=== PATIENT | female | born 1980 | race African-American/Black ===

== ENCOUNTER 2017-09-08 13:56 | Outpatient (CLI) | payer OTHER | END 2017-09-08 13:57 | disposition home or self-care (01) | LOC: DTY/OP 13:56 | PROVIDERS: ATTEND Family Medicine | DX: R63.5 Abnormal weight gain (principal) | CPT/HCPCS: 97802 ==

== ENCOUNTER 2018-02-26 16:21 | Outpatient (CLI) | payer OTHER | END 2018-02-26 16:22 | disposition home or self-care (01) | LOC: CTENTCT 16:21 | PROVIDERS: ATTEND Specialist | DX: J32.9 Chronic sinusitis, unspecified (principal) | CPT/HCPCS: 70486 ==

== ENCOUNTER 2021-10-01 16:54 | Inpatient (IN) | payer BC ==
[~2021-10-01 16:54] MED LIST: Iopamidol-370 76% 500 ML 1 ML ONE
[2021-10-01] MEDS ORDERED: Morphine 4 MG/ML VIAL ONE ×2 (17:37→22:01)
[2021-10-01] MEDS ORDERED: Cefepime 2 GM VIAL ONE (17:37)
[2021-10-01 17:44] LABS: BHCG - Serum Negative (NEGATIVE); Pregs Control Background? CLEAR/WHITE (CLR/WHITE); Pregs Control Bar Appear? YES (CONTROL BAR)
[2021-10-01] MEDS ORDERED: Acetaminophen 325 MG TAB PO PRN (18:36)
[2021-10-01] MEDS ORDERED: Guaifenesin DM 100-10/5 ML UDCUP PO PRN (18:42)
[2021-10-01] MEDS ORDERED: Ondansetron PF 4 MG/2 ML Vial IVP PRN (18:42)
[2021-10-01] MEDS ORDERED: VANCOMYCIN 2 GRAM/500 ML BAG 2 GM in Premix Bag 1 BAG IVPB SCH (19:00)
[2021-10-01] MEDS ORDERED: Piperacillin/Tazobactam 3.375 GM in Sodium Chloride 0.9% 100 ML IVPB SCH (21:30)
[2021-10-02] MEDS ORDERED: Piperacillin/Tazobactam 3.375 GM in Sodium Chloride 0.9% 100 ML IVPB SCH (02:00)
[2021-10-02 02:03] VITALS: BMI 57.8
[2021-10-02] MEDS: Famotidine/PF 20 mg/2ml Vial SLOW IVP SCH ×2 (02:09→08:55)
[2021-10-02] MEDS ORDERED: Sodium Chloride 0.9% 1,000 ML IV SCH (02:15)
[2021-10-02] MEDS ORDERED: Morphine 4 MG/ML VIAL SLOW IVP PRN ×3 (02:38→02:50)
[2021-10-02 03:59] LABS: SARS-CoV-2 NAA Rapid Test Not Detected (NotDetected)
[2021-10-02 06:21] LABS: #Basophils 0.1 thou/uL (0.0-0.2); #Eosinphils 0.1 thou/uL (0.0-0.7); #Lymphocytes 4.9 thou/uL (1.20-3.40); #Monocytes 1.6 thou/uL (0.11-0.59); #Neutrophils 10.8 thou/uL (1.40-6.50); %Basophils 0.5 % (0.0-1.0); %Eosinophils 0.7 % (0.0-10.0); %Lymphocytes 28.1 % (21.0-51.0); %Monocytes 9.1 % (0.0-10.0); %Neutrophils 61.6 % (42.0-75.0); Hemoglobin 10.8 g/dL (12.0-16.0); Mean Corpuscular Hemoglobin 24.9 pg (27.0-31.0); Mean Corpuscular Volume 77.8 fL (78.0-98.0); Mean Platelet Volume 7.7 fL (7.4-10.4); Platelet Count 331 thou/uL (130-400); RBC Distribution Width 13.8 % (11.5-14.5); Red Blood Cell (RBC) Count 4.34 mill/uL (4.20-5.40); White Blood Cell (WBC) Count 17.5 thou/uL (4.8-10.8)
[2021-10-02] MEDS: Piperacillin/Tazobactam 3.375 GM in Sodium Chloride 0.9% 100 ML IVPB SCH ×3 (06:28→21:35)
[2021-10-02 06:40] LABS: Anion Gap 10 mmol/L (10-20); BUN (Urea Nitrogen) 8 mg/dL (7.0-18.7); Calc. Creatinine Clearance 247 mL/min (70-130); Calcium 8.6 mg/dL (7.8-10.44); Carbon Dioxide 26 mmol/L (22-29); Chloride 105 mmol/L (98-107); Estimated GFR 95; Glucose 104 mg/dL (70-105); Potassium 3.3 mmol/L (3.5-5.1); Sodium 138 mmol/L (136-145)
[2021-10-02] MEDS ORDERED: Electrolyte Replacement Protocol 1 EACH FS SCH (08:45)
[2021-10-02] MEDS: HYDROcodone/Acetaminophen 5/325 mg Tablet PO PRN ×2 (08:55→18:00)
[2021-10-02] MEDS ORDERED: Enoxaparin Sodium 40 MG/0.4 ML SYRINGE SC SCH (09:00)
[2021-10-02] MEDS ORDERED: Electrolyte Replacement Protocol FS PRN (10:00)
[2021-10-02] MEDS: Potassium Chloride 20 MEQ in Premix Bag 1 BAG IVPB SCH ×2 (10:42→15:40)
[2021-10-02] MEDS ORDERED: Potassium Chloride 20 MEQ TAB PO SCH (15:45)
[2021-10-02 17:03] LABS: Potassium 3.5 mmol/L (3.5-5.1)
[2021-10-02 18:27] LABS: BF Color Colorless; BF RBC Count - Manual 2 /cu.mm; BF WBC/Nonhematics Ct.-Manual 1 /cu.mm; Clarity Clear (Clear); Tube # EDTA
[2021-10-02 18:44] LABS: Synovial Fluid, Glucose Less than 7 mg/dL (Not Available); Synovial Fluid, Protein Less than 1.0 g/dL (Not Available); Synovial Fluid, Uric Acid Less than 2.0 mg/dL (Not Available)
[2021-10-02] MEDS: diphenhydrAMINE 25 MG CAP PO SCH (20:34)
[2021-10-03] MEDS: HYDROcodone/Acetaminophen 5/325 mg Tablet PO PRN ×3 (05:30→21:39)
[2021-10-03] MEDS: Piperacillin/Tazobactam 3.375 GM in Sodium Chloride 0.9% 100 ML IVPB SCH ×3 (05:30→21:55)
[2021-10-03 07:30] LABS: #Eosinphils 0.2 thou/uL (0.0-0.7); #Lymphocytes 3.7 thou/uL (1.20-3.40); #Monocytes 1.2 thou/uL (0.11-0.59); #Neutrophils 11.9 thou/uL (1.40-6.50); %Basophils 0.1 % (0.0-1.0); %Lymphocytes 21.7 % (21.0-51.0); %Monocytes 6.9 % (0.0-10.0); %Neutrophils 70.2 % (42.0-75.0); Hemoglobin 11.2 g/dL (12.0-16.0); Mean Corpuscular HGB CONC 31.8 g/dL (32.0-36.0); Mean Corpuscular Hemoglobin 24.7 pg (27.0-31.0); Mean Corpuscular Volume 77.6 fL (78.0-98.0); Mean Platelet Volume 7.6 fL (7.4-10.4); Platelet Count 341 thou/uL (130-400); RBC Distribution Width 13.6 % (11.5-14.5); Red Blood Cell (RBC) Count 4.56 mill/uL (4.20-5.40); White Blood Cell (WBC) Count 16.9 thou/uL (4.8-10.8)
[2021-10-03 07:48] LABS: ALT (SGPT) 46 U/L (8-55); AST (SGOT) 22 U/L (5-34); Albumin 3.1 g/dL (3.5-5.0); Alkaline Phosphatase 73 U/L (40-110); Anion Gap 13 mmol/L (10-20); BUN (Urea Nitrogen) 8 mg/dL (7.0-18.7); Bilirubin, Total Less than 0.2 mg/dL (0.2-1.2); Calc. Creatinine Clearance 225 mL/min (70-130); Calcium 8.7 mg/dL (7.8-10.44); Carbon Dioxide 24 mmol/L (22-29); Chloride 103 mmol/L (98-107); Estimated GFR 85; Glucose 127 mg/dL (70-105); Magnesium 1.8 mg/dL (1.6-2.6); Potassium 3.5 mmol/L (3.5-5.1); Protein, Total 7.1 g/dL (6.0-8.3); Sodium 136 mmol/L (136-145)
[2021-10-03] MEDS ORDERED: Potassium Chloride 20 MEQ TAB PO SCH (08:45)
[2021-10-03] MEDS ORDERED: Magnesium 2 GM/50 ML(in water) 2 GM in Premix Bag 1 BAG IVPB SCH (08:45)
[2021-10-03] MEDS ORDERED: NORGESTREL ETHINYL ESTRADIOL PO SCH (09:00)
[2021-10-03] MEDS ORDERED: Polyethylene Glycol 3350 17 GM Packet PO SCH (10:30)
[2021-10-03] MEDS: Ketorolac Tromethamine 30 MG/ML VIAL IVP PRN ×2 (13:47→21:40)
[2021-10-03 16:17] LABS: Complement-C4 44.8 mg/dL (15-57)
[2021-10-03 16:38] LABS: HIV (1/2) Antibody/Antigen Non-Reactive (NonReactive); HIV 1/2 INDEX 0.13 S/CO (<1.00)
[2021-10-03 18:46] LABS: ANA Symphony (Qualitative) Negative (Negative); ANA Symphony (Quantitative) 0.5 Ratio (< 0.7 Negative); dsDNA IgG Antibody 0.9 IU/mL (<10 Negative)
[2021-10-03] MEDS: diphenhydrAMINE 25 MG CAP PO SCH (21:38)
[2021-10-03] MEDS: Senokot S 8.6-50 MG TAB PO SCH (21:39)
[2021-10-03] MEDS ORDERED: Dexamethasone 1 MG TAB PO SCH (23:00)
[2021-10-04] MEDS: Ketorolac Tromethamine 30 MG/ML VIAL IVP PRN ×3 (05:23→18:15)
[2021-10-04] MEDS: HYDROcodone/Acetaminophen 5/325 mg Tablet PO PRN ×3 (05:24→18:14)
[2021-10-04] MEDS: Piperacillin/Tazobactam 3.375 GM in Sodium Chloride 0.9% 100 ML IVPB SCH ×3 (05:25→21:12)
[2021-10-04 06:14] LABS: #Eosinphils 0.2 thou/uL (0.0-0.7); #Lymphocytes 2.9 thou/uL (1.20-3.40); #Monocytes 0.9 thou/uL (0.11-0.59); #Neutrophils 11.1 thou/uL (1.40-6.50); %Basophils 0.3 % (0.0-1.0); %Lymphocytes 19.2 % (21.0-51.0); %Monocytes 5.7 % (0.0-10.0); %Neutrophils 73.8 % (42.0-75.0); Hemoglobin 11.2 g/dL (12.0-16.0); Mean Corpuscular HGB CONC 31.8 g/dL (32.0-36.0); Mean Corpuscular Hemoglobin 24.9 pg (27.0-31.0); Mean Corpuscular Volume 78.2 fL (78.0-98.0); Mean Platelet Volume 7.7 fL (7.4-10.4); Platelet Count 362 thou/uL (130-400); RBC Distribution Width 13.6 % (11.5-14.5); Red Blood Cell (RBC) Count 4.49 mill/uL (4.20-5.40)
[2021-10-04 06:26] LABS: Anion Gap 15 mmol/L (10-20); BUN (Urea Nitrogen) 10 mg/dL (7.0-18.7); Calc. Creatinine Clearance 260 mL/min (70-130); Calcium 9.2 mg/dL (7.8-10.44); Carbon Dioxide 23 mmol/L (22-29); Chloride 104 mmol/L (98-107); Estimated GFR 102; Glucose 130 mg/dL (70-105); Sodium 138 mmol/L (136-145)
[2021-10-04] MEDS: Polyethylene Glycol 3350 17 GM Packet PO SCH (08:28)
[2021-10-04] MEDS: Senokot S 8.6-50 MG TAB PO SCH ×2 (08:28→21:13)
[2021-10-04] MEDS ORDERED: Cosyntropin 250 MCG VIAL SLOW IVP SCH (14:45)
[2021-10-04] MEDS: diphenhydrAMINE 25 MG CAP PO SCH (21:13)
[2021-10-05] MEDS: Ketorolac Tromethamine 30 MG/ML VIAL IVP PRN ×3 (01:46→14:01)
[2021-10-05] MEDS: HYDROcodone/Acetaminophen 5/325 mg Tablet PO PRN ×3 (01:46→14:02)
[2021-10-05] MEDS: Piperacillin/Tazobactam 3.375 GM in Sodium Chloride 0.9% 100 ML IVPB SCH ×2 (06:27→14:01)
[2021-10-05] MEDS: Polyethylene Glycol 3350 17 GM Packet PO SCH (08:02)
[2021-10-05] MEDS: Senokot S 8.6-50 MG TAB PO SCH (08:05)
[2021-10-05 08:16] VITALS: BP 125/91; TEMP 97.5
[2021-10-05] MEDS ORDERED: Electrolyte Replacement Protocol 1 EACH FS SCH (14:30)
== END 2021-10-05 17:00 | disposition home or self-care (01) | DRG 558 ==
LOC: ERS 16:54 → SURG B 18:36
PROVIDERS: ADMIT Internal Medicine; ATTEND Internal Medicine
PROC: 0L9 Tendons, Drainage (ICD-10-PCS; principal; 2021-10-02)
DX: M66.852 Spontaneous rupture of other tendons, left thigh (principal); Z68.43 Body mass index [BMI] 50.0-59.9, adult; Z20.822 Contact with and (suspected) exposure to COVID-19; I10 Essential (primary) hypertension; K21.9 Gastro-esophageal reflux disease without esophagitis; E66.01 Morbid (severe) obesity due to excess calories; R73.03 Prediabetes; D53.9 Nutritional anemia, unspecified; Z90.49 Acquired absence of other specified parts of digestive tract; Z90.09 Acquired absence of other part of head and neck; Z79.899 Other long term (current) drug therapy
CPT/HCPCS: 20610; 36415; 36416; 71045; 74177; 77002; 80048; 80053; 82530; 82533; 82945; 83605; 83735; 84157; 84560; 84703; 85025; 85652; 86038; 86140; 86160; 86225; 87070; 87205; 87389; 89051; 96361; 96365; 96375; J0692; J1885; J2270; J2543; J3370; J3475; J3480; J3490; J7050; J8540; Q9967; S0028; U0002

== ENCOUNTER 2021-10-17 19:07 | Observation (INO) | payer BC ==
[2021-10-17] MEDS ORDERED: Morphine 4 MG/ML VIAL ONE ×2 (19:35→21:06)
[2021-10-17 19:59] LABS: Hemoglobin 13.1 g/dL (12.0-16.0); Mean Corpuscular HGB CONC 33.2 g/dL (32.0-36.0); Mean Corpuscular Hemoglobin 25.8 pg (27.0-31.0); Mean Corpuscular Volume 77.6 fL (78.0-98.0); Mean Platelet Volume 7.2 fL (7.4-10.4); Platelet Count 459 thou/uL (130-400); RBC Distribution Width 13.8 % (11.5-14.5); Red Blood Cell (RBC) Count 5.09 mill/uL (4.20-5.40); White Blood Cell (WBC) Count 20.5 thou/uL (4.8-10.8)
[2021-10-17 20:18] LABS: ALT (SGPT) 24 U/L (8-55); AST (SGOT) 18 U/L (5-34); Albumin 3.7 g/dL (3.5-5.0); Alkaline Phosphatase 86 U/L (40-110); Anion Gap 16 mmol/L (10-20); BUN (Urea Nitrogen) 10 mg/dL (7.0-18.7); Bilirubin, Total 0.2 mg/dL (0.2-1.2); CK (CPK) 49 U/L (29-168); CRP (Inflammatory) 6.62 mg/dL (= or < 0.5); Calc. Creatinine Clearance 0 mL/min (70-130); Calcium 9.4 mg/dL (7.8-10.44); Carbon Dioxide 23 mmol/L (22-29); Chloride 105 mmol/L (98-107); Estimated GFR 89; Globulin 4.7 g/dL (2.4-3.5); Glucose 109 mg/dL (70-105); Potassium 3.4 mmol/L (3.5-5.1); Protein, Total 8.4 g/dL (6.0-8.3); Sodium 141 mmol/L (136-145)
[2021-10-17 20:20] LABS: Eosinophils 1 % (0-10); Hypochromia SLIGHT = 6-15 cells (100X) (0-5/hpf); Lymphocytes 32 % (21-51); MDiff Complete? YES; Microcytosis SLIGHT = 6-15 cells (100X) (0-5/hpf); Monocytes 7 % (0-10); Neutrophil 58 % (42-75); Platelet Morphology Comment Appears Increased; Polychromasia SLIGHT = 2-3 cells (100X) (0-2/hpf); Reactive Lymphocytes 1 % (0-10)
[2021-10-17] MEDS ORDERED: Vancomycin 1 GM/200 ML BAG ONE (20:53)
[2021-10-17] MEDS ORDERED: Piperacillin/Tazobactam 4.5 GM VIAL ONE (20:53)
[2021-10-17] MEDS ORDERED: Ketorolac Tromethamine 30 MG/ML VIAL ONE (21:06)
[2021-10-17 21:11] LABS: BHCG - Serum Negative (NEGATIVE); Pregs Control Background? CLEAR/WHITE (CLR/WHITE); Pregs Control Bar Appear? YES (CONTROL BAR)
[2021-10-17 23:57] LABS: Bacteria/HPF None Seen HPF (None Seen); Bilirubin Negative (Negative); Blood, Urine 2+ (Negative); Clarity Clear (Clear); Glucose, Urine (Dipstick) Normal (Negative); Ketone, Urine Negative (Negative); Leukocyte Negative Leu/uL (Negative); Nitrite Negative (Negative); Protein, Urine (Dipstick) Negative (Neg-Trace); RBC/HPF 0-3 HPF (0-3); Squamous Epithelial 0-3 HPF (0-3); Urobilinogen Normal mg/dL (Less than 2); WBC/HPF 0-3 HPF (0-3)
[2021-10-17 23:58] LABS: Specific Gravity, Urine 1.049 (1.002-1.036)
[2021-10-18] MEDS ORDERED: Ondansetron ODT 4 MG TAB PO PRN (00:56)
[2021-10-18] MEDS ORDERED: Ondansetron PF 4 MG/2 ML Vial IVP PRN (00:56)
[2021-10-18] MEDS ORDERED: Acetaminophen 325 MG TAB PO PRN (00:56)
[2021-10-18] MEDS ORDERED: Potassium Chloride 20 MEQ TAB PO SCH (01:30)
[2021-10-18] MEDS ORDERED: Ketorolac Tromethamine 30 MG/ML VIAL IVP SCH (01:30)
[2021-10-18 02:25] VITALS: BMI 56.8
[2021-10-18] MEDS: HYDROcodone/Acetaminophen 5/325 mg Tablet PO PRN ×4 (02:39→22:30)
[2021-10-18] MEDS: Sodium Chloride 0.9% 1,000 ML IV SCH ×3 (02:40→22:30)
[2021-10-18] MEDS: Ketorolac Tromethamine 30 MG/ML VIAL IVP PRN (04:10)
[2021-10-18 05:34] LABS: Mean Corpuscular HGB CONC 31.6 g/dL (32.0-36.0); Mean Corpuscular Hemoglobin 24.7 pg (27.0-31.0); Mean Corpuscular Volume 78.2 fL (78.0-98.0); Mean Platelet Volume 7.3 fL (7.4-10.4); Platelet Count 372 thou/uL (130-400); RBC Distribution Width 13.5 % (11.5-14.5); Red Blood Cell (RBC) Count 4.44 mill/uL (4.20-5.40); White Blood Cell (WBC) Count 18.4 thou/uL (4.8-10.8)
[2021-10-18 05:51] LABS: Anion Gap 14 mmol/L (10-20); BUN (Urea Nitrogen) 9 mg/dL (7.0-18.7); Calc. Creatinine Clearance 256 mL/min (70-130); Calcium 8.3 mg/dL (7.8-10.44); Carbon Dioxide 23 mmol/L (22-29); Chloride 105 mmol/L (98-107); Estimated GFR 102; Glucose 112 mg/dL (70-105); Potassium 3.4 mmol/L (3.5-5.1); Sodium 139 mmol/L (136-145)
[2021-10-18 06:03] LABS: Hypochromia SLIGHT = 6-15 cells (100X) (0-5/hpf); Lymphocytes 20 % (21-51); MDiff Complete? YES; Monocytes 26 % (0-10); Neutrophil 54 % (42-75); Platelet Morphology Comment Appears Adequate
[2021-10-18] MEDS: Enoxaparin Sodium 40 MG/0.4 ML SYRINGE SC SCH (08:07)
[2021-10-18] MEDS: Morphine 2 MG/ML VIAL SLOW IVP PRN (20:24)
[2021-10-18] MEDS: Senokot S 8.6-50 MG TAB PO SCH (20:25)
[2021-10-19] MEDS: Morphine 2 MG/ML VIAL SLOW IVP PRN (04:13)
[2021-10-19] MEDS: HYDROcodone/Acetaminophen 5/325 mg Tablet PO PRN ×2 (06:26→10:34)
[2021-10-19] MEDS: Sodium Chloride 0.9% 1,000 ML IV SCH (06:26)
[2021-10-19] MEDS: Ketorolac Tromethamine 30 MG/ML VIAL IVP PRN (06:27)
[2021-10-19] MEDS: Senokot S 8.6-50 MG TAB PO SCH (08:18)
[2021-10-19] MEDS: Enoxaparin Sodium 40 MG/0.4 ML SYRINGE SC SCH (08:18)
[2021-10-19 08:51] VITALS: BP 129/84; TEMP 98.6
== END 2021-10-19 10:59 | disposition home or self-care (01) ==
LOC: ERS 19:07 → MSONC 23:48
PROVIDERS: ADMIT Internal Medicine; ATTEND Internal Medicine
DX: R10.31 Right lower quadrant pain (principal); E28.2 Polycystic ovarian syndrome; D72.829 Elevated white blood cell count, unspecified; E87.6 Hypokalemia; K76.0 Fatty (change of) liver, not elsewhere classified; K21.9 Gastro-esophageal reflux disease without esophagitis; R73.03 Prediabetes; E66.01 Morbid (severe) obesity due to excess calories; Z68.43 Body mass index [BMI] 50.0-59.9, adult; Z79.3 Long term (current) use of hormonal contraceptives; Z79.899 Other long term (current) drug therapy; Z20.822 Contact with and (suspected) exposure to COVID-19
CPT/HCPCS: 36415; 74177; 80048; 80053; 81003; 81015; 82550; 83605; 84703; 85025; 85652; 86140; 87040; 87086; 96372; 96376; G0378; J1650; J1885; J2270; J2543; J3370; J7050; Q9967; U0003; U0005